=== PATIENT | male | born 1945 | race Caucasian/White ===

== ENCOUNTER → 2016-11-02 | Outpatient (CLI) | payer OTHER ==
[~2016-11-02] MED LIST: ASPI81TA28 PO; BRIM0.2S OPB; CHOL200010 PO; CLON0.5T3 PO; FLUT0.15 NAE; TRAV0.00 OPB
== END | disposition home or self-care (01) ==
LOC: C.LABSPEC 16:19
PROVIDERS: ATTEND Internal Medicine Infectious Disease
DX: J32.9 Chronic sinusitis, unspecified (principal)

== ENCOUNTER 2017-12-06 21:11 | Emergency (ER) | payer OTHER ==
[~2017-12-06] VITALS: Ht 182.9 cm; Wt 82.3 kg
[2017-12-06] MEDS ORDERED: FENTANYL CITRATE INJ 50 MCG/1 ML 2 ML VIAL IV ONE (21:13)
[2017-12-06] MEDS ORDERED: SODIUM CHLORIDE 0.9% 1000ML 1,000 ML IV SCH (21:13)
[2017-12-06] MEDS ORDERED: SUCCINYLCHOLINE CHLORIDE 20 MG/ML 10 ML VIAL IV ONE (21:13)
[2017-12-06] MEDS ORDERED: ETOMIDATE 2 MG/ML 20 ML VIAL IV ONE (21:13)
[2017-12-06 21:29] VITALS: TEMP 36.6; Ht 182.9 cm; Wt 82.3 kg
--- NOTE | 2017-12-06 21:32 | DIAGNOSTIC IMAGING REPORT ---
CT OF THE HEAD WITHOUT CONTRAST CLINICAL HISTORY: Stroke symptoms. COMPARISON STUDY: Head CT and MRI of the brain July 08, 2015. CT DOSE: 823.94 mGycm TECHNIQUE: Helical axial images of the head were obtained without IV contrast. Automated exposure control was utilized for the study. A dose lowering technique was utilized adhering to the principles of ALARA. FINDINGS: There is an 8.1 x 2.7 cm acute hematoma centered within the left basal ganglia. There is moderate mass effect with 6 mm right midline shift as well as marked compression of the left lateral ventricle. Associated edema is noted as well as sulcal effacement with the left cerebral hemisphere. Intraventricular extension of hemorrhage is noted with hemorrhage within the lateral, third and fourth ventricles. White matter hypodensities favor small vessel disease. There are no significant calvarial abnormalities. There are postoperative findings within the sinuses with moderate polypoid mucosal thickening of the sinuses scattered air-fluid levels and secretions within the sphenoid sinus. IMPRESSION: Large acute intraparenchymal hematoma, measuring 8.1 x 2.7 cm, centered within the left basal ganglia with intraventricular extension of hemorrhage. Significant associated mass effect with 6 mm of rightward midline shift, marked compression of the left lateral ventricle and sulcal effacement. The appearance favors a hypertensive hemorrhage. Findings discussed with Dr. Pennington at time of dictation. Electronically signed by: Venkat Henry M.D. 12/06/2017 9:31 PM Dictated Date/Time: 12/06/2017 9:24 PM
[2017-12-06 21:37] VITALS: O2SAT 95
[2017-12-06] MEDS ORDERED: RAPID SEQUENCE INDUCTION BAG ONE (21:42)
[2017-12-06 21:55] LABS: BASO % 0.1 %; BASO ABS # 0.01 K/uL (0-0.2); EOS % 1.4 %; EOS ABS # 0.15 K/uL (0-0.5); HEMATOCRIT 46.8 % (42-52); HEMOGLOBIN 16.9 g/dL (14.0-18.0); IG# 0.01 K/uL (0.00-0.02); LYMPH ABS # 1.04 K/uL (1.2-3.4); MEAN CELL VOLUME 91.6 fL (80-100); MEAN CORPUSCULAR HEMOGLOBIN 33.1 pg (25-34); MEAN CORPUSCULAR HGB CONC 36.1 g/dl (32-36); MEAN PLATELET VOLUME 10.2 fL (7.4-10.4); MONO ABS # 0.42 K/uL (0.11-0.59); NEUT % 84.4 %; NEUT ABS # 8.79 K/uL (1.4-6.5); PLATELET COUNT 126 K/uL (130-400); RED CELL DISTRIBUTION WIDTH CV 12.7 % (11.5-14.5); RED CELL DISTRIBUTION WIDTH SD 42.6 fL (36.4-46.3); WHITE BLOOD COUNT 10.42 K/uL (4.8-10.8)
[2017-12-06 21:55] LABS: ISTAT CREATININE 1.2 mg/dl (0.6-1.3); ISTAT IONIZED CALCIUM 1.23 mmol/l (1.12-1.32); ISTAT POTASSIUM 4.8 mEq/L (3.3-5.0)
[2017-12-06] MEDS ORDERED: PROPOFOL IV EMULSION 10 MG/ML 100 ML VIAL IV ONE ×2 (21:58→22:48)
[2017-12-06] MEDS ORDERED: NiCARDipine IV 25 MG in SODIUM CHLORIDE 0.9% 250ML 240 ML IV PRN (22:15)
--- NOTE | 2017-12-06 22:29 | DIAGNOSTIC IMAGING REPORT ---
CHEST ONE VIEW PORTABLE CLINICAL HISTORY: Stroke COMPARISON STUDY: Chest radiograph January 24, 2006. FINDINGS: Tip of endotracheal tube is 4.8 cm above the zak. There is no pneumothorax or pleural effusion. There is no consolidation or evidence for pulmonary edema. Patient is mildly rotated. Cardiac size is normal. IMPRESSION: 1. Tip of endotracheal tube 4.8 cm above the zak. 2. No acute cardiopulmonary findings. Electronically signed by: Venkat Henry M.D. 12/06/2017 10:28 PM Dictated Date/Time: 12/06/2017 10:27 PM
[2017-12-06 22:30] LABS: BLOOD UREA NITROGEN 14 mg/dl (7-18); CALCIUM 9.5 mg/dl (8.5-10.1); CARBON DIOXIDE 27 mmol/L (21-32); CREATININE 1.23 mg/dl (0.60-1.40); GLUCOSE 138 mg/dl (70-99); POTASSIUM 4.6 mmol/L (3.5-5.1); SODIUM 138 mmol/L (136-145)
[2017-12-06] MEDS ORDERED: NiCARDipine IV 25 MG in SODIUM CHLORIDE 0.9% 250ML 240 ML IV STA (22:49)
[2017-12-06 23:10] VITALS: BP 133/88; PULSE 60; O2SAT 95
--- NOTE | 2017-12-06 23:55 | EMERGENCY ROOM VISIT NOTE ---
History Report prepared by Robert: Eunice Mixon Under the Supervision of: Dr. Juan C Pennington M.D. First contact with patient: 21:13 Chief Complaint: STROKE SYMPTOMS Stated Complaint: STROKE SX Nursing Triage Summary: Pt presents als for evaluation for stroke like symptoms. Pt did not return to the house from working for dinner. Pt found pt in bathroom unresponsive. Pt partially responsive to verbal commands. Pt non verbal. Gaze to the left. Right side flacid. History of Present Illness The patient is a 72 year old male who presents to the Emergency Room with complaints of persistent general unresponsiveness for an unknown time, though last known well at 1500 today. Per EMS, the patient did not show up for dinner and he was supposed to be buffing floors downstairs. The found him in the bathroom pinned against the door unresponsive. She was unable to get to him by herself until police arrived. Per EMS, the patient vomited multiple times, though they are unsure if he aspirated. Per EMS, the patient had a left-sided gaze and left-sided facial droop. The patient has a history of TIA 1.5 years ago. Per , she states the last time she saw the patient was at 1500 today. She states that he takes medication for Glaucoma. EMR review showed a CVA history July 08, 2015. She states that the patient is taking Aspirin daily , though denies any other blood thinner use. Per , the patient does not have an advanced directive, though states that he would prefer life-saving interventions. HPI is limited secondary to medical acuity and mental status. Source of History: spouse/significant other, EMS Onset: unknown time, last known well 1500 today Position: other (general) Quality: other (unresponsiveness) Associated Symptoms: + vomiting Review of Systems ROS is limited secondary to medical acuity and mental status. Past Medical & Surgical Medical Problems: (1) Esophageal Reflux (2) Glaucoma (3) Hiatal hernia (4) Hypertension Nos (5) Schatzki's ring (6) TIA (transient ischemic attack) Family History No pertinent family history Social History Smoking Status: Unknown if Ever Smoked Drug Use: none Marital Status: Housing Status: lives with significant other Occupation Status: retired Current/Historical Medications Scheduled Aspirin (Aspirin Ec), 81 MG PO DAILY Cholecalciferol (Vitamin D), 4,000 INTER.UNIT PO DAILY Clonazepam (Klonopin), Unknown Dose PO HS Travoprost (Travatan Z), 1 DROP OPB HS Allergies Coded Allergies: Sulfamethoxazole w/Trimethoprim (Verified Allergy, Intermediate, GI UPSET , 12/06/17) Ampicillin (Verified Adverse Reaction, Intermediate, SEVERE NAUSEA AND VOMITING, 12/06/17) Clavulanic Acid (Verified Adverse Reaction, Intermediate, GI UPSET, ) Amoxicillin (Verified Adverse Reaction, Unknown, severe vomiting, 12/06/17) Physical Exam Vital Signs Date Time Temp Pulse Resp B/P (MAP) Pulse Ox O2 Delivery O2 Flow Rate FiO2 12/06/17 23:10 60 16 133/88 95 12/06/17 22:53 75 12/06/17 22:31 59 20 146/90 100 Mechanical Ventilator 100 12/06/17 22:31 58 20 146/90 100 12/06/17 22:29 100 12/06/17 22:21 58 16 151/91 100 12/06/17 22:18 170/101 12/06/17 22:11 61 20 137/91 99 12/06/17 22:01 54 20 137/85 97 12/06/17 21:51 54 12/06/17 21:51 59 16 97 12/06/17 21:41 60 24 137/102 97 12/06/17 21:39 60 26 150/91 96 Nasal Cannula 2.0 12/06/17 21:37 95 Nasal Cannula 2.0 12/06/17 21:34 150/91 12/06/17 21:31 60 21 92 12/06/17 21:29 36.6 60 18 146/108 96 Nasal Cannula 2.0 12/06/17 21:28 146/108 Physical Exam GENERAL: Awake, semi-alert, lethargic-appearing, in moderate distress HENT: Normocephalic, atraumatic. Oropharynx vomitus EYES: Normal conjunctiva. Sclera non-icteric. PERRL. NECK: Supple. No nuchal rigidity. FROM. No masses. RESPIRATORY: Coarse breath sounds. Normal respiratory effort. CARDIAC: Borderline bradycardic rate. Normal rhythm. No murmurs. No rubs. Extremities warm and well perfused. Pulses equal. No JVD. GI: Soft, non-distended. No tenderness to palpation. No rebound or guarding. No masses. RECTAL: Deferred. MUSCULOSKELETAL: Atraumatic. Chest examination reveals no tenderness. The back is symmetrical on inspection without obvious abnormality. There is no CVA tenderness to palpation. No joint edema. LOWER EXTREMITIES: Calves are equal size bilaterally and non-tender. No edema. No discoloration. Down going toes on the right side with Babinski. Up going toes on the left. NEURO: Altered sensorium. Flaccid on right side. Unable to fully assess sensory findings. Semi-alert, following commands with eye opening. SKIN: No rash or jaundice noted. Medical Decision & Procedures ER Provider Diagnostic Interpretation: Radiology results as stated below per my review and radiologist interpretation: CT OF THE HEAD WITHOUT CONTRAST CLINICAL HISTORY: Stroke symptoms. COMPARISON STUDY: Head CT and MRI of the brain July 08, 2015. CT DOSE: 823.94 mGycm TECHNIQUE: Helical axial images of the head were obtained without IV contrast. Automated exposure control was utilized for the study. A dose lowering technique was utilized adhering to the principles of ALARA. FINDINGS: There is an 8.1 x 2.7 cm acute hematoma centered within the left basal ganglia. There is moderate mass effect with 6 mm right midline shift as well as marked compression of the left lateral ventricle. Associated edema is noted as well as sulcal effacement with the left cerebral hemisphere. Intraventricular extension of hemorrhage is noted with hemorrhage within the lateral, third and fourth ventricles. White matter hypodensities favor small vessel disease. There are no significant calvarial abnormalities. There are postoperative findings within the sinuses with moderate polypoid mucosal thickening of the sinuses scattered air-fluid levels and secretions within the sphenoid sinus. IMPRESSION: Large acute intraparenchymal hematoma, measuring 8.1 x 2.7 cm, centered within the left basal ganglia with intraventricular extension of hemorrhage. Significant associated mass effect with 6 mm of rightward midline shift, marked compression of the left lateral ventricle and sulcal effacement. The appearance favors a hypertensive hemorrhage. Findings discussed with Dr. Pennington at time of dictation. Electronically signed by: Venkat Henry M.D. 12/06/2017 9:31 PM Dictated Date/Time: 12/06/2017 9:24 PM Laboratory Results 12/06/17 21:41 Red Blood Count 5.11, Mean Corpuscular Volume 91.6, Mean Corpuscular Hemoglobin 33.1, Mean Corpuscular Hemoglobin Concent 36.1, Mean Platelet Volume 10.2, Neutrophils (%) (Auto) 84.4, Lymphocytes (%) (Auto) 10.0, Monocytes (%) (Auto) 4.0, Eosinophils (%) (Auto) 1.4, Basophils (%) (Auto) 0.1, Neutrophils # (Auto) 8.79, Lymphocytes # (Auto) 1.04, Monocytes # (Auto) 0.42, Eosinophils # (Auto) 0.15, Basophils # (Auto) 0.01 12/06/17 21:41 Test 12/06/17 21:31 12/06/17 21:41 12/06/17 21:42 Bedside Glucose 137 mg/dl (70-99) White Blood Count 10.42 K/uL (4.8-10.8) Red Blood Count 5.11 M/uL (4.7-6.1) Hemoglobin 16.9 g/dL (14.0-18.0) Hematocrit 46.8 % (42-52) Mean Corpuscular Volume 91.6 fL (80-100) Mean Corpuscular Hemoglobin 33.1 pg (25-34) Mean Corpuscular Hemoglobin Concent 36.1 g/dl (32-36) Platelet Count 126 K/uL (130-400) Mean Platelet Volume 10.2 fL (7.4-10.4) Neutrophils (%) (Auto) 84.4 % Lymphocytes (%) (Auto) 10.0 % Monocytes (%) (Auto) 4.0 % Eosinophils (%) (Auto) 1.4 % Basophils (%) (Auto) 0.1 % Neutrophils # (Auto) 8.79 K/uL (1.4-6.5) Lymphocytes # (Auto) 1.04 K/uL (1.2-3.4) Monocytes # (Auto) 0.42 K/uL (0.11-0.59) Eosinophils # (Auto) 0.15 K/uL (0-0.5) Basophils # (Auto) 0.01 K/uL (0-0.2) RDW Standard Deviation 42.6 fL (36.4-46.3) RDW Coefficient of Variation 12.7 % (11.5-14.5) Immature Granulocyte % (Auto) 0.1 % Immature Granulocyte # (Auto) 0.01 K/uL (0.00-0.02) Prothrombin Time 10.8 SECONDS (9.0-12.0) Prothromb Time International Ratio 1.0 (0.9-1.1) Activated Partial Thromboplast Time 21.0 SECONDS (21.0-31.0) Partial Thromboplastin Ratio 0.8 Est Creatinine Clear Calc Drug Dose 59.6 ml/min Estimated GFR () 67.6 Estimated GFR (Non- 58.3 BUN/Creatinine Ratio 11.5 (10-20) Calcium Level 9.5 mg/dl (8.5-10.1) Magnesium Level 2.2 mg/dl (1.8-2.4) Total Creatine Kinase 105 U/L (39-308) Creatine Kinase MB 2.0 ng/ml (0.5-3.6) Creatine Kinase MB Ratio 1.9 (0-3.0) Troponin I < 0.015 ng/ml (0-0.045) Bedside Hemoglobin 16.3 g/dl (14.0-18.0) Bedside Hematocrit 48 % (42-52) Bedside Sodium 141 mEq/L (135-144) Bedside Potassium 4.8 mEq/L (3.3-5.0) Bedside Chloride 104 mEq/L (101-112) Bedside Total CO2 26 mEq/l (24-31) Anion Gap 17.0 mmol/L (16-25) Bedside Blood Urea Nitrogen 16 mg/dl (7-18) Bedside Creatinine 1.2 mg/dl (0.6-1.3) Bedside Glucose (other) 142 mg/dl (70-99) Bedside Ionized Calcium (Tamara) 1.23 mmol/l (1.12-1.32) Laboratory results reviewed by me Medications Administered Medications (Trade) Dose Ordered Sig/Brando Route Start Time Stop Time Status Last Admin Dose Admin Sodium Chloride 1,000 ml @ 50 mls/hr Q20H IV 12/06/17 21:13 12/06/17 23:41 DC 12/06/17 22:26 50 MLS/HR Miscellaneous (Rapid Sequence Induction Bag) 1 ea STK-MED ONCE N/A 12/06/17 21:42 12/06/17 21:43 DC 12/06/17 21:42 1 EA Propofol (Diprivan Iv Emulsion 100ml Vial) 1 dose STK-MED ONCE IV 12/06/17 21:58 12/06/17 21:59 DC 12/06/17 22:26 1 DOSE Procedure Endotracheal Intubation Indication airway protection due to ICH. The patient was on 100% oxygen via NRB prior to the procedure. Suction, airway equipment, RSI drugs, respiratory equipment, and appropriate personnel were prepared prior to the initiation of the procedure. A time out was taken. Induction was performed with Etomidate and Succinylcholine. After observing the clinical benefit of the medications, the airway was easily visualized utilizing a glide scope. A 8.0 size ETT tube was placed atraumatically to 24 cm using standard technique. The cuff inflated without signs of malfunction. There were bilateral breath sounds, positive colormetric change, no gastric sounds, a good capnography waveform, and post procedure pulse oximetry was 100%. Post intubation sedation using propofol. No post paralysis was administered. There were no complications. ECG Per My Interpretation Indication: other (unresponsive) Rate (beats per minute): 60 Rhythm: normal sinus Findings: no acute ischemic change, no ectopy ED Course 2121: The patient was evaluated in room B1. A complete history and physical exam was performed. 2112: Ordered Sodium Chloride 1,000 ml @ 50 mls/hr IV 2125: I spoke with Dr. Henry, radiologist. We discussed the patient's case. He confirmed CT scan report. 2140: I spoke with Dr. Davis, neurosurgeon. We discussed the patient's case. He recommends nicardipine. He states to keep the patient's blood pressure below 160 systolic. 2146: I spoke with Dr. Andre, critical care. We discussed the patient's case. The patient has been accepted for further care at [facility]. 2158: Ordered Propofol GTT dose IV 2205: I reassessed the patient at this time. I intubated the patient. Please see procedure note. 2215: Ordered Nicardipine HCl 25 mg/Sodium Chloride 250 ml @ 0 mls/hr IV 2244: I reassessed the patient at this time. He is stable. Life-flight is here and the patient will be transferred to [facility]. Medical Decision Prior records/ancillary studies reviewed and summarized above. Nursing notes reviewed and agree them. Additional history obtained from EMS and the patient's . The patient's history was concerning for altered mental status. Differential diagnosis: Etiologies such as CVA, TIA, infection, hypoglycemia, electrolyte abnormalities , cardiac sources, intracerebral event, toxicologic, neurologic, as well as others were entertained. Physical examination: As above. Right gaze preference. Right-sided paralysis. ER treatment provided: IV Lock Normal saline hydration at 50 mL's an hour. Elevation of head of bed to 30 Endotracheal intubation IV etomidate, IV succinylcholine, IV fentanyl for intubation Propofol drip On reassessment the patient was stable. Nicardipine drip was at the bedside but was not initiated. Diagnostics interpretation by me: ECG: Normal sinus The labs revealed an unremarkable CBC and chemistry panel. Imaging studies: Chest x-ray and CT scan as above The patient has suffered a massive intracranial hemorrhage. He is in critical condition although his vital signs are relatively stable at the moment. The was updated and was in the room for the entire workup except for the intubation and chest x-ray. She was shown his imaging and I explained the grave situation. As he is a [facility] primary patient she elected for him to be treated at [facility]. Neurosurgery is not available here. Consultation: A consultation was placed with the neurosurgeon on-call at [facility] as well as the critical care physician. Case was discussed. The patient was accepted in transfer. LifeFlight was arranged through [facility] and they presented to the emergency department. The patient was assessed. I informed the flight crew of the details and treatment. They were provided with the nicardipine and propofol drips for transport. The patient was reassessed just prior to transfer and was hemodynamically stable although in critical condition due to his hemorrhage. He was transferred to [place] for further care. Medication Reconcilliation Current Medication List: was personally reviewed by me Blood Pressure Screening Patient's blood pressure: Elevated blood pressure monitored by tertiary care Consults Time Called: 2131 Consulting Physician: Dr. Davis neurosurgeon Returned Call: [address] Davis neurosurgeon. We discussed the patient's case. He recommends nicardipine. He states to keep the patient's blood pressure below 160 systolic. Additional Consults: Time Called: 2146 Consulted Physician: Dr. Andre, critical care Additional Comments: I spoke with Dr. Andre, critical care. We discussed the patient's case. The patient has been accepted for further care at [facility]. Time Called: 2125 Consulted Physician: Dr. Henry, radiologist Additional Comments: I spoke with Dr. Henry, radiologist. We discussed the patient's case. He confirmed CT scan report. Impression Primary Impression: ICH (intracerebral hemorrhage) Critical Care I have personally spent greater than 75 minutes of critical care time in the direct management of this patient. This includes bedside care, interpretation of diagnostic studies, and testing, discussion with consultants, patient, and family members, and other required patient management activities. This 75 minutes is in excess of all separately billable procedures. Scribe Attestation The scribe's documentation has been prepared under my direction and personally reviewed by me in its entirety. I confirm that the note above accurately reflects all work, treatment, procedures, and medical decision making performed by me. Departure Information Dispostion Transfer Acute Care Facility ([facility]) Referrals Michael Mcbride D.OMaylin (PCP) Patient Instructions My [facility]
== END 2017-12-06 23:10 | disposition short-term general hospital (02) ==
LOC: EDBD 21:11 → C.EDB 21:12
DX: I61.9 Nontraumatic intracerebral hemorrhage, unspecified (principal); K21.9 Gastro-esophageal reflux disease without esophagitis; Z86.73 Personal history of transient ischemic attack (TIA), and cerebral infarction without residual deficits; I10 Essential (primary) hypertension; Z79.82 Long term (current) use of aspirin; Z79.899 Other long term (current) drug therapy; Z88.2 Allergy status to sulfonamides; Z88.1 Allergy status to other antibiotic agents; Z88.8 Allergy status to other drugs, medicaments and biological substances